=== PATIENT | female | born 1960 | race Two or more races ===

== ENCOUNTER 2025-07-03 12:33 | Inpatient (IN) | payer OTHER ==
[~2025-07-03] VITALS: Ht 167.6 cm; Wt 88.5 kg
[2025-07-03] MEDS ORDERED: CRESTOR40 MG (13:13)
[2025-07-03] MEDS ORDERED: IRBESARTAN-HCT1 EAC1 PO (13:13)
[2025-07-03] MEDS ORDERED: PROTONIX40 MG PO (13:13)
[2025-07-03] MEDS ORDERED: SYNTHROID88 MCG PO (13:13)
[2025-07-03] MEDS ORDERED: PEPCID AC20 MG (13:14)
[2025-07-03 14:00] VITALS: BP 130/86
[2025-07-03 15:23] LABS: RH POSITIVE
[2025-07-14] MEDS ORDERED: CEFTRIAXONE SODIUM 2,000 MG VIAL ONE (08:22)
[2025-07-14] MEDS ORDERED: METRONIDAZOLE/SODIUM CHLORIDE 500 MG/100 ML PIGGYBACK IV ONE (08:22)
[2025-07-14] MEDS ORDERED: LIDOCAINE HCL 1%/EPINEPHRINE 20ML VIAL IJ ONE (10:31)
[2025-07-14] MEDS ORDERED: BUPIVACAINE HCL/MPF 0.5% 30ML VIAL ONE (10:31)
[2025-07-14] MEDS ORDERED: SUGAMMADEX SODIUM 200 MG/2 ML VIAL IV ONE (16:43)
[2025-07-14] MEDS ORDERED: OxyCODONE HCL 5 MG TABLET (ROXICODONE) PO PRN (17:15)
[2025-07-14] MEDS ORDERED: ONDANSETRON HCL 2 MG/ML VIAL IV PRN (17:15)
[2025-07-14] MEDS ORDERED: RINGERS SOLUTION,LACTATED 1,000 ML IV SCH (17:15)
[2025-07-14] MEDS ORDERED: MORPHINE SULFATE 4 MG/ML CARTRIDGE IV PRN (17:15)
[2025-07-14] MEDS ORDERED: hydrALAZINE HCL 20 MG VIAL ONE (17:50)
[2025-07-14] MEDS ORDERED: ACETAMINOPHEN 500 MG GEL..CAP PO SCH (18:00)
[2025-07-14] MEDS ORDERED: MORPHINE SULFATE 4 MG/ML VIAL IV ONE ×2 (18:05→19:05)
[2025-07-14 19:14] LABS: BASO % 0.3 % (0.1-1.2); EOS # 0.02 (0.04-0.54); EOS % 0.1 % (0.7-7.0); LYMPH # 1.53 (1.18-3.74); LYMPH % 11.2 % (19.3-53.1); MEAN PLATELET VOLUME 10.60 fl (9.4-12.4); MONO # 0.67 (0.24-0.82); MONO % 4.9 % (4.7-12.5); NEUT # 11.29 (1.56-6.13); NEUT % 83.0 % (34.0-71.1); RED CELL DISTRIBUTION WIDTH 12.9 % (11.6-14.4)
[2025-07-14] MEDS ORDERED: ONDANSETRON HCL 2 MG/ML VIAL IV ONE (19:15)
[2025-07-14] MEDS ORDERED: ONDANSETRON HCL 2 MG/ML VIAL ONE (19:24)
[2025-07-14 19:54] LABS: BUN CREA RATIO 12.0 (7.0-25.0); CREATININE SERUM 0.67 mg/dL (0.55-1.02); GFR 88.33; GLUCOSE FASTING 157.0 mg/dL (65-100); OSMOLALITY SERUM 279.0 MOSM/KG (275-295)
[2025-07-14 20:00] VITALS: BP 162/75; O2SAT 94
[2025-07-14] MEDS ORDERED: FAMOTIDINE/PF 20 MG/2 ML VIAL IV PUSH SCH (21:00)
[2025-07-14] MEDS ORDERED: POLYETHYLENE GLYCOL 3350 17 GM BLIST.PACK PO SCH (21:00)
[2025-07-14] MEDS ORDERED: SIMETHICONE 125 MG CAPSULE PO SCH (21:00)
[2025-07-15] MEDS ORDERED: GABAPENTIN 300 MG CAPSULE PO SCH (01:00)
[2025-07-15 01:13] VITALS: BP 142/69; O2SAT 100
[2025-07-15] MEDS ORDERED: LEVOTHYROXINE SODIUM 88 MCG TABLET PO SCH (06:00)
[2025-07-15 08:00] VITALS: BP 145/64; O2SAT 97
[2025-07-15 08:06] LABS: BASO % 0.2 % (0.1-1.2); EOS # 0.00 (0.04-0.54); EOS % 0.0 % (0.7-7.0); LYMPH # 0.76 (1.18-3.74); LYMPH % 7.6 % (19.3-53.1); MEAN PLATELET VOLUME 10.70 fl (9.4-12.4); MONO # 0.45 (0.24-0.82); MONO % 4.5 % (4.7-12.5); NEUT # 8.77 (1.56-6.13); NEUT % 87.5 % (34.0-71.1); RED CELL DISTRIBUTION WIDTH 13.2 % (11.6-14.4)
[2025-07-15 08:34] LABS: BUN CREA RATIO 11.0 (7.0-25.0); CREATININE SERUM 0.56 mg/dL (0.55-1.02); GFR 108.64; GLUCOSE FASTING 117.0 mg/dL (65-100); OSMOLALITY SERUM 278.0 MOSM/KG (275-295)
[2025-07-15] MEDS ORDERED: HYDROCHLOROTHIAZIDE 12.5 MG CAPSULE PO SCH (09:00)
[2025-07-15] MEDS ORDERED: MAGNESIUM CHLORIDE 70 MG TABLET.DR PO SCH (09:00)
[2025-07-15] MEDS ORDERED: IRBESARTAN 300 MG TABLET PO SCH (09:00)
[2025-07-15] MEDS ORDERED: LACTOBACILLUS ACIDOPHILUS 1 CAP CAP PO SCH (09:00)
[2025-07-15] MEDS ORDERED: ROSUVASTATIN CALCIUM 20 MG TABLET PO SCH (09:00)
[2025-07-15] MEDS ORDERED: POTASSIUM PHOS,M-BASIC-D-BASIC 15 MM in 0.9 % SODIUM CHLORIDE 250 ML IV NR (11:00)
[2025-07-15] MEDS ORDERED: MAGNESIUM SULFATE IN WATER 2 GM/50 ML PIGGYBAG IV NR (11:00)
[2025-07-15] MEDS ORDERED: MEPERIDINE HCL/PF 50 MG/ML VIAL IM STA (11:21)
[2025-07-15] MEDS ORDERED: MEPERIDINE HCL/PF 50 MG/ML VIAL IM PRN (11:30)
[2025-07-15] MEDS ORDERED: MORPHINE SULFATE 2 MG/ML CARTRIDGE IV PRN (12:00)
[2025-07-15 16:00] VITALS: BP 154/73; O2SAT 95
[2025-07-15] MEDS ORDERED: POTASSIUM CHLORIDE 10 MEQ CAPSULE PO SCH (17:00)
[2025-07-15] MEDS ORDERED: ENOXAPARIN SODIUM 40 MG/0.4 ML SYRINGE SUBCUTANEO SCH (17:00)
[2025-07-15 23:59] VITALS: BP 138/74; O2SAT 95
[2025-07-16 07:52] LABS: BASO % 0.3 % (0.1-1.2); EOS # 0.02 (0.04-0.54); EOS % 0.2 % (0.7-7.0); LYMPH # 1.64 (1.18-3.74); LYMPH % 18.6 % (19.3-53.1); MEAN PLATELET VOLUME 11.30 fl (9.4-12.4); MONO # 0.67 (0.24-0.82); MONO % 7.6 % (4.7-12.5); NEUT # 6.44 (1.56-6.13); NEUT % 73.1 % (34.0-71.1); RED CELL DISTRIBUTION WIDTH 13.4 % (11.6-14.4)
[2025-07-16 08:17] VITALS: BP 148/68; O2SAT 95
[2025-07-16 08:18] LABS: BUN CREA RATIO 12.0 (7.0-25.0); CREATININE SERUM 0.68 mg/dL (0.55-1.02); GFR 86.84; GLUCOSE FASTING 96.0 mg/dL (65-100); OSMOLALITY SERUM 278.0 MOSM/KG (275-295)
[2025-07-16 16:00] VITALS: BP 160/76; O2SAT 96
[2025-07-16 23:50] VITALS: BP 180/79; O2SAT 96
[2025-07-17] MEDS ORDERED: ENALAPRILAT DIHYDRATE 2.5 MG/2 ML VIAL IV PRN (01:00)
[2025-07-17] MEDS ORDERED: ENALAPRILAT DIHYDRATE 1.25 MG/ML VIAL IV PRN (01:15)
[2025-07-17] MEDS ORDERED: NAPH,MB-DB/K PH,MBDB 1 PKT PACKET PO STA (08:06)
[2025-07-17 08:17] VITALS: BP 120/66; O2SAT 95
[2025-07-17] MEDS ORDERED: POTASSIUM PHOS,M-BASIC-D-BASIC 15 MM in 0.9 % SODIUM CHLORIDE 250 ML IV ONE (10:00)
[2025-07-17 16:00] VITALS: BP 170/78; O2SAT 95
[2025-07-17 20:00] VITALS: BP 160/76; O2SAT 94
[2025-07-18 00:52] VITALS: BP 132/77; O2SAT 98
[2025-07-18 05:02] LABS: BASO % 0.5 % (0.1-1.2); EOS # 0.21 (0.04-0.54); EOS % 2.5 % (0.7-7.0); LYMPH # 1.86 (1.18-3.74); LYMPH % 22.1 % (19.3-53.1); MEAN PLATELET VOLUME 11.80 fl (9.4-12.4); MONO # 0.75 (0.24-0.82); MONO % 8.9 % (4.7-12.5); NEUT # 5.52 (1.56-6.13); NEUT % 65.6 % (34.0-71.1); RED CELL DISTRIBUTION WIDTH 13.2 % (11.6-14.4)
[2025-07-18 05:32] LABS: BUN CREA RATIO 13.0 (7.0-25.0); CREATININE SERUM 0.62 mg/dL (0.55-1.02); GFR 96.6; GLUCOSE FASTING 112.0 mg/dL (65-100); OSMOLALITY SERUM 277.0 MOSM/KG (275-295)
[2025-07-18 08:50] VITALS: BP 146/81; O2SAT 96
[2025-07-18] MEDS ORDERED: NAPH,MB-DB/K PH,MBDB 1 PKT PACKET PO NR (10:00)
== END 2025-07-18 11:17 | disposition home or self-care (01) | DRG 331 ==
LOC: O/R 07-14 07:00 → SURH 07-14 12:45
PROVIDERS: ADMIT Colon & Rectal Surgery; ATTEND Colon & Rectal Surgery
PROC: 07BC4ZZ Excision of Pelvis Lymphatic, Percutaneous Endoscopic Approach (ICD-10-PCS; 2025-07-14)
PROC: 0DNW4ZZ Release Peritoneum, Percutaneous Endoscopic Approach (ICD-10-PCS; 2025-07-14)
PROC: 0WQF4ZZ Repair Abdominal Wall, Percutaneous Endoscopic Approach (ICD-10-PCS; 2025-07-14)
PROC: 0DTF4ZZ Resection of Right Large Intestine, Percutaneous Endoscopic Approach (ICD-10-PCS; principal; 2025-07-14 13:45)
DX: C18.2 Malignant neoplasm of ascending colon (principal); K63.5 Polyp of colon

== ENCOUNTER 2025-07-05 07:00 | Day surgery (SDC) | payer OTHER ==
[~2025-07-05 07:00] MED LIST: CRESTOR40 MG; IRBESARTAN-HCT1 EAC1 PO; PEPCID AC20 MG; PROTONIX40 MG PO; SYNTHROID88 MCG PO
== END 2025-07-05 15:05 | disposition home or self-care (01) ==
LOC: AMB-ENDOS 07:00
PROVIDERS: ATTEND Colon & Rectal Surgery
DX: C18.4 Malignant neoplasm of transverse colon (principal)